=== PATIENT | female | born 1990 | race Caucasian/White ===

== ENCOUNTER 2018-02-06 16:57 | Emergency (ER) | payer BC, OTHER ==
[2018-02-06 17:24] VITALS: BP 127/83
[2018-02-06] MEDS ORDERED: Ketorolac INJ* 30 MG/ML 1 ML VIAL IM ONE (18:14)
--- NOTE | 2018-02-06 18:14 | UC ---
Abdominal Pain Female HPI - HPI Summary HPI Summary: The patient is a 27-year-old female that presents here with body two-hour history of moderate right upper quadrant abdominal pain. The pain came on acutely. She has mild nausea but no vomiting there has been no fever or chills. She has never had any surgery on her abdomen. The pain worsens if she stretches out. She denies any chest pain or shortness of breath. She has no UTI symptoms. - History of Current Complaint Chief Complaint: UCAbdominalPain Stated Complaint: ABDOMINAL PAIN Time Seen by Provider: 02/06/18 18:05 Hx Obtained From: Patient Hx Last Menstrual Period: [id number] Onset/Duration: Sudden Onset, Lasting Hours Timing: Constant Severity Initially: Moderate Severity Currently: Moderate Pain Intensity: 6 Pain Scale Used: 0-10 Numeric Location: Discrete At: RUQ Radiates: No Character: Colicy Aggravating Factor(s): Movement, Deep Breaths Alleviating Factor(s): Nothing Associated Signs and Symptoms: Positive: Nausea. Negative: Diaphoresis, Fever, Cough, Chest Pain, Dizzy, Back Pain, Constipation, Blood in Stool, Urinary Symptoms, Decreased Appetite, Vaginal Bleeding, Vaginal Discharge, Vomiting, Diarrhea Allergies/Adverse Reactions: Allergies Allergy/AdvReac Type Severity Reaction Status Date / Time No Known Allergies Allergy Verified 02/06/18 17:25 Home Medications: Home Medications Ibuprofen TAB* [Motrin TAB* 600 MG] 600 mg PO Q8H PRN 02/06/18 [History Confirmed 02/06/18] PMH/Surg Hx/FS Hx/Imm Hx Previously Healthy: Yes - Surgical History Surgical History: Yes Surgery Procedure, Year, and Place: LEEP PROCEDURE 2013, JAW WIRED 2010 - Family History Known Family History: Positive: Hypertension - Social History Alcohol Use: Weekly Substance Use Type: None Smoking Status (MU): Former Smoker Type: Cigarettes Amount Used/How Often: 3 CIG/DAY Review of Systems All Other Systems Reviewed And Are Negative: Yes Constitutional: Positive: Negative Skin: Positive: Negative Eyes: Positive: Negative ENT: Positive: Negative Respiratory: Positive: Negative Cardiovascular: Positive: Negative Gastrointestinal: Positive: Abdominal Pain, Nausea Genitourinary: Positive: Negative Motor: Positive: Negative Neurovascular: Positive: Negative Musculoskeletal: Positive: Negative Neurological: Positive: Negative Psychological: Positive: Negative Physical Exam Triage Information Reviewed: Yes Appearance: Well-Appearing, No Pain Distress, Well-Nourished Vital Signs: Initial Vital Signs Temp 98.6 F 02/06/18 17:16 Pulse 70 02/06/18 17:16 Resp 16 02/06/18 17:16 BP 127/83 02/06/18 17:16 Pulse Ox 99 02/06/18 17:16 Vital Signs Reviewed: Yes Eyes: Positive: Conjunctiva Clear ENT: Positive: Hearing grossly normal. Negative: Nasal congestion, Nasal drainage, Muffled voice Neck: Positive: Supple, Nontender Respiratory: Positive: Lungs clear, Normal breath sounds, No respiratory distress, No accessory muscle use Cardiovascular: Positive: RRR, No Murmur Abdomen Description: Positive: Soft. Negative: Nontender - RUQ tenderness, CVA Tenderness (R), CVA Tenderness (L), Hepatomegaly, McBurney's Point Tenderness, Peritoneal Signs, Pulsatile Mass, Splenomegaly Musculoskeletal: Positive: ROM Intact, No Edema Neurological: Positive: Alert Psychological Exam: Normal Skin Exam: Normal Diagnostics - Laboratory Diagnostic Studies Completed/Ordered: UA NEG. uHCG (-) Re-Evaluation - Re-Evaluation First Eval Re-Evaluation Time: 18:47 Change: Improved - pain decreased Abd Pain Female Course/Dx - Differential Dx/Diagnosis Provider Diagnoses: acute right upper quadrient abdominal pain. suspect biliary colic Discharge - Sign-Out/Discharge Documenting (check all that apply): Patient Departure All imaging exams completed and their final reports reviewed: No Studies - Discharge Plan Condition: Stable Disposition: HOME Patient Education Materials: Biliary Colic (ED) Referrals: Carlito Holbrook MD [Primary Care Provider] - As Soon As Possible Additional Instructions: TO ER FOR NEW OR WORSENING SYMPTOMS -increased pain -fever -vomiting I suspect this may be due to gallstones avoid fatty or fried foods - Billing Disposition and Condition Condition: STABLE Disposition: Home
== END 2018-02-06 18:59 | disposition home or self-care (01) ==
LOC: UCEAST 16:57
DX: R10.11 Right upper quadrant pain (principal); Z87.891 Personal history of nicotine dependence
CPT/HCPCS: 81003; 84702; 96372; 99211; G0463; J1885